=== PATIENT | male | born 1945 | race Caucasian/White ===

== ENCOUNTER → 2020-03-09 15:47 | Outpatient (CLI) | payer SELFPAY ==
[2020-03-09 17:09] LABS: Hematocrit 41.3 % (40-54); Mean Corp Hgb Conc 33.9 g/dL (32-36); Mean Corpuscular Hgb 29.2 pg (27.0-32.0); Mean Corpuscular Volume 86.2 fL (80-94); Mean Platelet Vol. 9.1 fl (6.2-12.0); Platelet Count 196 K/mm3 (150-450); RBC Distribution Width CV 13.5 % (11.6-14.6); RBC Distribution Width SD 41.8 fl (35.1-43.9); Red Blood Count 4.79 M/mm3 (4.6-6.2); White Blood Count 5.9 K/mm3 (4.4-11.0)
[2020-03-09 17:35] LABS: Erythrocyte Sedimentation Rate 3 mm/hr (0-20)
[2020-03-09 17:50] LABS: Hemoglobin A1c 5.7 % (3.8-5.6)
[2020-03-09 18:57] LABS: ALB/GLOB Ratio 1.5 RATIO (0.9-2.4); AST(SGOT) 34 U/L (15-37); Alanine Aminotransfer ALT/SGPT 69 U/L (16-61); Albumin, Serum 4.1 g/dL (3.2-5.0); Alkaline Phosphatase 27 U/L (45-117); Anion Gap 4 (5-15); BUN 17 mg/dL (7-18); CRP < 2.90 mg/L (0.0-3.0); Calcium,Total 8.7 mg/dL (8.5-10.1); Chloride 107 mmol/L (98-107); Cholesterol 198 mg/dL (200); Creatinine, Serum 1.13 mg/dL (0.70-1.30); EST Glomerular Filtration Rate 67 mL/min (>60); Est Glom Filt Rate - Afr Amer 82 mL/min (>60); Globulin 2.7 g/dL (2.2-4.2); Glucose 99 mg/dL (74-106); High Density Lipoprotein 25 mg/dL; LDH 190 U/L (87-241); Magnesium 2.5 mg/dL (1.6-2.6); Phosphorus 4.2 mg/dL (2.5-4.9); Potassium 4.1 mmol/L (3.5-5.1); Protein, Total 6.8 g/dL (6.4-8.2); Sodium Level 140 mmol/L (136-145); Triglycerides 337 mg/dL; Very Low Density Lipoprotein 67 mg/dL (5-40)
[2020-03-10 09:39] LABS: PSA,Total - Annual Screen 0.58 ng/mL (0.00-4.00)
== END ==
PROVIDERS: Referring Provider Nurse Practitioner Family; Visit Provider Nurse Practitioner Family
DX: R14.0 Abdominal distension (gaseous) (principal); R05 Cough; I10 Essential (primary) hypertension; B39.9 Histoplasmosis, unspecified; E66.9 Obesity, unspecified
CPT/HCPCS: 36415; 80053; 80061; 83036; 83615; 83735; 84100; 84153; 85027; 85652; 86140; G0103